=== PATIENT | female | born 1975 | race Caucasian/White ===

== ENCOUNTER → 2024-08-04 18:25 | Outpatient (BNVA) | payer BC, SELFPAY | PROVIDERS: Family Provider Electrodiagnostic Medicine; Visit Provider Emergency Medicine | DX: S90.31XA Contusion of right foot, initial encounter (principal); M77.31 Calcaneal spur, right foot; M79.674 Pain in right toe(s); W22.8XXA Striking against or struck by other objects, initial encounter | CPT/HCPCS: 73630 ==